=== PATIENT | female | born 1960 | race Two or more races ===

== ENCOUNTER 2024-02-26 10:52 | Emergency (ER) | payer BC, MEDICAID, OTHER ==
[~2024-02-26] VITALS: Ht 165.1 cm; Wt 69.0 kg
[2024-02-26 12:26] VITALS: TEMP 98.4
[2024-02-26] MEDS: MORPHINE SULFATE 4 MG/ML SYR/VIAL IM ONE (12:50)
[2024-02-26] MEDS: HYDROcodone-ACET 5/325MG TAB PO ONE (13:00)
[2024-02-26] MEDS: cloNIDine HCL 0.1 MG TAB PO ONE (13:00)
[2024-02-26 14:31] VITALS: BP 136/79; PULSE 77; RESP 18; O2SAT 98
[2024-02-26] MEDS ORDERED: HYDR-4902 PO (14:41)
== END 2024-02-26 14:51 | disposition home or self-care (01) ==
LOC: ER 10:52
DX: K08.89 Other specified disorders of teeth and supporting structures (principal); K13.79 Other lesions of oral mucosa

== ENCOUNTER 2024-08-16 09:36 | Emergency (ER) | payer MEDICAID ==
[~2024-08-16] VITALS: Ht 167.6 cm; Wt 64.8 kg
[~2024-08-16 09:36] MED LIST: HYDR-4902 PO
[2024-08-16] MEDS: cloNIDine HCL 0.1 MG TAB PO ONE (10:29)
[2024-08-16 10:54] VITALS: PULSE 74; RESP 17; O2SAT 95
[2024-08-16] MEDS ORDERED: HYDROcodone-ACET 5/325MG TAB PO ONE (11:00)
[2024-08-16] MEDS: HYDROcodone-ACET 10/325MG TAB PO ONE (11:03)
--- NOTE | 2024-08-16 11:05 | ED.PDOC ---
History of Present Illness HPI Comments 64F presents to the ER w/ no prior Hx associated to the c/c of a fall. Pt reports that she was walking when she tripped over her plantar and fell onto the concrete, hitting her face. Pt states that she was home alone during that time and that the fall was 1 week ago. Pt did not see a physician after the trauma. Pt states of having right sided rib pain as well as ecchymosis on the right eye. Denies chills, fever, N/V/D, SOB, CP or other associated symptoms, modifiers, or recent injuries at this time. Chief Complaint: Fall Injury Time Seen by MD: 11:00 Primary Care Provider: nora Rahman Notes: Nurses Notes, Medications, Allergies Allergies: Coded Allergies: NO KNOWN ALLERGIES (Unverified , 02/26/24) Home Meds Active Scripts Ibuprofen Micronized (MOTRIN TABLET) 600 Mg Tb, 600 MG PO TID PRN for 5 Days, #15 TAB *Black box warning-NSAIDS can increase risk of ND & hypertension, GI irritation, ulceration, bleed, perferation. Do not use post cardiac surgery. Use short duration/lowest effective dose. Prov:YADIEL ESPANA MD 08/16/24 Hydrocodone-Acetaminophen (Hydrocodone Bitartrate/AC 5-325 mg) 1 Tab Tab, 1 TAB PO Q8HPRN PRN for 2 Days, #6 TAB 0 Refills Prov:FLORA ANN NP 02/26/24 Information Source: Patient Mode of Arrival: Ambulatory Severity: Moderate Timing: Days Duration: Since onset, Days Prehospital treatment: None Past Medical History PAST MEDICAL HISTORY: Denies Surgical History: Denies all surgeries PROFESSOR OF ENGINEERING History: No Pertinent PROFESSOR OF ENGINEERING History Family History Family History: Reviewed,noncontributory to illness, Unknown Social History Smoker: Non-Smoker Alcohol: Denies ETOH Use Drugs: Denies Drug Use Lives In: Home Constitutional: denies: chills, diaphoresis, fatigue, fever, malaise, sweats, weakness, others EENTM: denies: blurred vision, double vision, ear bleeding, ear discharge, ear drainage, ear pain, ear ringing, eye pain, eye redness, hearing loss, mouth pain, mouth swelling, nasal discharge, nose bleeding, nose congestion, nose pain, photophobia, tearing, throat pain, throat swelling, voice changes, others Respiratory: denies: cough, hemoptysis, orthopnea, SOB at rest, shortness of breath, SOB with excertion, stridor, wheezing, others Cardiovascular: denies: chest pain, dizzy spells, diaphoresis, Dyspnea on exertion, edema, irregular heart beat, left arm pain, lightheadedness, palpitations, PND, syncope, others Gastrointestinal: denies: abdomen distended, abdominal pain, blood streaked bowels, constipated, diarrhea, dysphagia, difficulty swallowing, hematemesis, melena, nausea, poor appetite, poor fluid intake, rectal bleeding, rectal pain, vomiting, others Genitourinary: denies: abnormal vagina bleeding, burning, dyspareunia, dysuria, flank pain, frequency, hematuria, incontinence, pain, , vagina discharge, urgency, others Neurological: denies: dizziness, fainting, headache, left sided numbness, left sided weakness, numbness, paresthesia, pre-existing deficit, right sided numbness, right sided weakness, seizure, speech problems, tingling, tremors, weakness, others Musculoskeletal: reports: others (rib pain); denies: back pain, gout, joint pain, joint swelling, muscle pain, muscle stiffness, neck pain Integumetry: denies: bruises, change in color, change in hair/nails, dryness, laceration, lesions, lumps, rash, wounds, others Allergic/Immunocompromised: denies: Difficulty Healing, Frequent Infections, Hives, Itching, others Hematologic/Lymphatic: denies: anemia, blood clots, easy bleeding, easy bruising, swollen glands, others Endocrine: denies: excessive hunger, excessive sweating, excessive thirst, excessive urination, flushing, intolerance to cold, intolerance to heat, unexplained weight gain, unexplained weight loss, others Psychiatric: denies: anxiety, bipolar disorder, depression, hopeless, panic disorder, schizophrenia, sleepless, suicidal, others All Other Systems: Reviewed and Negative Physical Exam General Appearance: Moderate Distress, Normal HEENT: Normal ENT Inspection, Pharynx Normal, TMs Normal Neck: Full Range of Motion, Non-Tender, Normal, Normal Inspection Respiratory: Chest Non-Tender, Lungs Clear, No Accessory Muscle Use, No Respiratory Distress, Normal Breath Sounds Cardiovascular: No Edema, No JVD, No Murmur, No Gallop, Normal Peripheral Pulses, Regular Rate/Rhythm Breast Exam: Deferred Gastrointestinal: No Organomegaly, Non Tender, No Pulsatile Mass, Normal Bowel Sounds, Soft Genitalia: Deferred Pelvic: Deferred Rectal: Deferred Extremities: No calf tenderness, Normal capillary refill, Normal inspection, Normal range of motion, Non-tender, No pedal edema Musculoskeletal : Apperance: Normal Neurologic: Alert, site acquisition manager II-XII nml as Tested, No Motor Deficits, Normal Affect, Normal Mood, No Sensory Deficits Cerebellar Function: Normal Reflexes: Normal Skin: Bruises (Right side of face), Dry, Normal Color, Warm Peripheral Pulses: 3+ Radial (R), 3+ Radial (L) Lymphatic: No Adenopathy Was a procedure done? Was a procedure done?: No Differential Dx Considerations may include: Rib pain Musculoskeletal X-Ray, Labs, Meds, VS Vital Signs Date Time Temp Pulse Resp B/P (MAP) Pulse Ox O2 Delivery O2 Flow Rate FiO2 08/16/24 11:28 153/93 08/16/24 10:54 74 17 95 Room Air* 0 21 08/16/24 10:29 167/89 08/16/24 10:19 98.0 64 16 167/89 (115) 95 98.0 08/16/24 10:19 64 16 95 Room Air 08/16/24 09:49 98.0 77 18 193/89 (123) 100 Current Medications Medications (Trade) Dose Ordered Sig/Thompson Route Start Time Stop Time Status Last Admin Clonidine HCl (Catapres Tablet) 0.2 mg ONCE ONCE PO 08/16/24 10:00 08/16/24 10:01 DC 08/16/24 10:29 Acetaminophen/ Hydrocodone Bitart ([place] 10/325MG Tab) 1 tab ONCE ONCE PO 08/16/24 11:00 08/16/24 11:01 DC 08/16/24 11:03 Patient alert. Status post fall a week ago. Vitals stable. Answering all questions. Blood pressure elevated. Was given clonidine pain States that she has right-sided rib pain. Denies headache. Denies dizziness. Denies nausea vomiting. Ambulating without difficulty. Good muscle strength. X-ray reviewed does show rib fracture. Was given prescription of Motrin [place] medication. Explained to the patient. She insists on going home. Was told to follow up with her primary care physician. Was told to come back if there is any problem. Time of 1ST Reevaluation: 11:30 Reevaluation 1ST: Unchanged Time of 2ND Reevaluation: 12:47 Reevaluation 2ND: Improved Patient Education/Counseling: Diagnosis, Treatment, Prognosis Family Education/Counseling: No Family Present Departure 1 Departure Time of Disposition: 11:13 Impression: Primary Impression: Hypertensive urgency Additional Impressions: Musculoskeletal pain Fracture, ribs Qualified Codes: S22.41XA - Multiple fractures of ribs, right side, initial encounter for closed fracture Disposition: HOME / SELF CARE / HOMELESS Condition: Good e-Prescriptions Hydrocodone-Acetaminophen (Hydrocodone Bitartrate/AC 5-325 mg) 1 Tab Tab 1 TAB PO DAILY for 5 Days, #5 TAB Prov: YADIEL ESPANA MD 08/16/24 Ibuprofen Micronized (MOTRIN TABLET) 600 Mg Tb 600 MG PO TID PRN for 5 Days, #15 TAB *Black box warning-NSAIDS can increase risk of ND & hypertension, GI irritation, ulceration, bleed, perferation. Do not use post cardiac surgery. Use short duration/lowest effective dose. Prov: YADIEL ESPANA MD 08/16/24 Discharged With: Self Critical Care Note Critical Care Time?: No Stability Stability form required: No Heart Score Heart Score: Heart Score Response (Comments) Value History N/A 0 EKG N/A 0 Age N/A 0 Risk Factors N/A 0 Troponin N/A 0 Total 0 I personally scribed for YADIEL ESPANA MD ([email or web address]) on 08/16/24 at 11:05. Electronically submitted by Mike Enamorado ([email or web address]). YADIEL ESPANA MD Aug 16, 2024 11:05
[2024-08-16] MEDS ORDERED: IBU600T PO (11:14)
--- NOTE | 2024-08-16 11:59 | DVH ---
EXAMINATION: XY R RIB XRAY INDICATION: fall COMPARISON: None TECHNIQUE: Frontal view of the chest and 5 views of the right ribs FINDINGS: No focal consolidation, pleural effusion or significant pneumothorax. Normal cardiomediastinal silhou ette. Minimally displaced acute fracture of the right 8th and 9th lateral ribs. IMPRESSION: Acute minimally displaced fracture of the right lateral 8th and 9th ribs. No pneumothorax.
[2024-08-16] MEDS ORDERED: HYDR-4902 PO (12:46)
[2024-08-16 13:13] VITALS: BP 114/72; PULSE 62; RESP 18; TEMP 97.8; O2SAT 99
== END 2024-08-16 13:17 | disposition home or self-care (01) ==
LOC: ER 09:36
DX: S22.41XA Multiple fractures of ribs, right side, initial encounter for closed fracture (principal); I16.0 Hypertensive urgency; W01.0XXA Fall on same level from slipping, tripping and stumbling without subsequent striking against object, initial encounter; Y93.89 Activity, other specified; Y92.89 Other specified places as the place of occurrence of the external cause; Y99.8 Other external cause status
CPT/HCPCS: 71101